=== PATIENT | female | born 1960 | race Caucasian/White ===

== ENCOUNTER 2023-05-26 11:43 | Emergency (ER) | payer OTHER ==
[2023-05-26] MEDS: diazePAM 5 MG/ML MDV IV ONE (11:43)
[2023-05-26 11:48] LABS: BASOPHILS ABSOLUTE AUTO 0.02 K/uL (0.02-0.10); BASOPHILS PERCENT AUTO 0.2 % (0.0-0.5); EOSINOPHILS ABSOLUTE AUTO 0.02 K/uL (0.04-0.40); EOSINOPHILS PERCENT AUTO 0.2 % (1.0-5.0); HEMATOCRIT 41.8 % (37.0-47.0); HEMOGLOBIN 14.5 g/dL (11.5-16.5); LYMPHOCYTES ABSOLUTE AUTO 0.61 K/uL (1.50-4.00); LYMPHOCYTES PERCENT AUTO 5.2 % (20.0-40.0); MEAN CORPUSCULAR HEMOGLOBIN 33.4 pg (27.0-32.0); MEAN CORPUSCULAR HGB CONC 34.7 g/dL (31.0-35.0); MEAN CORPUSCULAR VOLUME 96 fL (76-96); MEAN PLATELET VOLUME 9.1 fL (6.0-10.0); MONOCYTES ABSOLUTE AUTO 0.38 K/uL (0.20-0.80); MONOCYTES PERCENT AUTO 3.2 % (3.0-10.0); NEUTROPHILS ABSOLUTE AUTO 10.76 K/uL (2.00-7.50); NEUTROPHILS PERCENT AUTO 91.2 % (45.0-70.0); PLATELET COUNT,PLT 218 K/uL (150-500); RED BLOOD CELL COUNT 4.34 M/uL (3.80-5.80); RED CELL DISTRIBUTION WIDTH 13.1 % (11.0-16.0); WHITE BLOOD CELL COUNT,WBC 11.8 K/uL (4.0-11.0)
[2023-05-26 12:05] LABS: A/G RATIO 1.2 (0.8-2.0); ALANINE AMINOTRANSFERASE,ALT 30 U/L (12-78); ALBUMIN 3.6 g/dL (3.4-5.0); ALKALINE PHOSPHATASE 65 U/L (46-116); ANION GAP 16.2 mmol/L (5.0-15.0); ASPARTATE AMNIOTRANSFERASE,AST 46 U/L (15-37); BILIRUBIN TOTAL 0.6 mg/dL (0.0-1.0); BLOOD UREA NITROGEN,BUN 16 mg/dL (8-26); BUN/CREATININE RATIO 15.7 (6-25); CALCIUM 9.2 mg/dL (8.5-10.1); CHLORIDE,CL 95 mmol/L (98-107); CREATININE 1.02 mg/dL (0.55-1.02); ESTIMATED GFR 61 mL/min (>60); GLUCOSE RANDOM 176 mg/dL (74-100); POTASSIUM,K 4.2 mmol/L (3.5-5.1); PROTEIN TOTAL,TP 6.7 g/dL (6.4-8.2); SODIUM,NA 128 mmol/L (136-145)
[2023-05-26] MEDS: levETIRAcetam 500 MG in Sodium Chloride 0.9% 100 ML IV ONE (12:27)
[2023-05-26] MEDS: Sodium Chloride 0.9% 1,000 ML IV SCH (12:35)
[2023-05-26] MEDS ORDERED: LORazepam 1 MG Tab ONE ×2 (14:20→14:45)
== END 2023-05-26 14:57 | disposition home or self-care (01) ==
LOC: LB.ED 11:43
DX: R56.9 Unspecified convulsions (principal)
CPT/HCPCS: 36415; 70450; 80053; 80307; 85025; 96361; 96374; 96375; 99284; A0425; A0429; A9270; J1953; J3360; J3490; J7030